=== PATIENT | female | born 1960 | race Caucasian/White ===

== ENCOUNTER → 2024-06-22 | Outpatient (CLI) | payer MEDICARE, SELFPAY ==
--- NOTE | 2024-06-22 14:20 | XR_ITS ---
Examination: Lumbar spine, 5 views Technique: Lumbar spine AP, lateral, coned lateral lower lumbar spine, bilateral obliques 5 views Exam date and time: June 22, 2024 1425 hours INDICATIONS: Back pain after reaching 2 days ago FINDINGS: Moderate osteopenia No lumbar fracture Diffuse lumbar disc narrowing, moderate to advanced, most prominent L4-L5, L5-S1 No spondylolisthesis IMPRESSION: No lumbar fracture Diffuse lumbar degenerative disc disease, advanced L4-L5, L5-S1
--- NOTE | 2024-06-22 14:20 | XR_ITS ---
Examination: Thoracic spine 3 views Technique one AP lateral coned lateral upper dorsal spine 3 views Exam date and time: June 22, 2024 at 1538 hours INDICATIONS: Injury to the back 2 days ago back pain FINDINGS: Adequate alignment thoracic vertebral bodies Prominent osteopenia Chronic osteoporotic mild compressions mid dorsal vertebral bodies No acute thoracic fracture Mild to moderate diffuse thoracic degenerative disc disease IMPRESSION: Mild to moderate diffuse thoracic degenerative disc disease
== END | disposition home or self-care (01) ==
LOC: CDIM 14:10
PROVIDERS: PCP Internal Medicine; Referring Provider Internal Medicine; Visit Provider Internal Medicine
DX: M51.369 Other intervertebral disc degeneration, lumbar region without mention of lumbar back pain or lower extremity pain (principal); M51.379 Other intervertebral disc degeneration, lumbosacral region without mention of lumbar back pain or lower extremity pain; M51.34 Other intervertebral disc degeneration, thoracic region
CPT/HCPCS: 72072; 72110

== ENCOUNTER → 2024-07-27 | Outpatient (CLI) | payer MEDICARE, SELFPAY ==
--- NOTE | 2024-07-27 13:00 | XR_ITS ---
Examination: Screening digital mammography, bilateral Computer aided detection 3-D breast Tomosynthesis, bilateral Date and time of exam: July 27, 2024 1249 hours Compared to mammograms dating to December 08, 2002 Indication: Screening Technique: Nonmagnified MLO, CC views of the breasts to been obtained, reconstructed from 3-D Tomosynthesis images. R2 computer aided detection program utilized for evaluation of suspicious masses and/or abnormal calcifications. 3-D Tomosynthesis images obtained. Findings: The breasts are heterogeneously dense, which may obscure small masses Stable focal asymmetry upper left breast MLO view Benign calcifications IMPRESSION: BI-RADS Category 3: Probably benign findings Recommend 1 additional 6 month left mammogram follow-up to document stability of focal asymmetry upper left breast noted on the December 08, 2022 exam and persistent on the current study
== END | disposition home or self-care (01) ==
PROVIDERS: PCP Internal Medicine; Referring Provider Internal Medicine; Visit Provider Internal Medicine
DX: Z12.31 Encounter for screening mammogram for malignant neoplasm of breast (principal); R92.333 Mammographic heterogeneous density, bilateral breasts; N64.89 Other specified disorders of breast
CPT/HCPCS: 77063; 77067

== ENCOUNTER → 2025-01-25 | Outpatient (CLI) | payer MEDICARE, SELFPAY ==
--- NOTE | 2025-01-25 13:00 | XR_ITS ---
Examination: Diagnostic digital mammography, unilateral, left Computer aided detection 3-D breast Tomosynthesis, unilateral Date and time of exam: January 25, 2025 1248 hours INDICATIONS: Mammogram July 2024 focal asymmetry upper left breast MLO view Technique: Nonmagnified MLO, CC views of the left breast have been obtained, reconstructed from 3-D Tomosynthesis images. R2 computer aided detection program utilized for evaluation of suspicious masses and/or abnormal calcifications. 3-D Tomosynthesis images obtained. Findings: The breast is heterogeneously dense, which may obscure small masses Stable focal asymmetry upper outer left breast Impression: BI-RADS category 0: Incomplete: Need additional imaging evaluation Recommend follow-up left breast sonography to further assess focal asymmetry upper outer left breast
== END | disposition home or self-care (01) ==
PROVIDERS: PCP Internal Medicine; Referring Provider Internal Medicine; Visit Provider Internal Medicine
DX: N64.89 Other specified disorders of breast (principal); R92.8 Other abnormal and inconclusive findings on diagnostic imaging of breast
CPT/HCPCS: 77061; 77065; G0279

== ENCOUNTER → 2025-02-21 | Outpatient (CLI) | payer MEDICARE, SELFPAY ==
--- NOTE | 2025-02-21 13:30 | XR_ITS ---
Examination: Breast ultrasound, unilateral, left completely Date and time of exam: February 21, 2025 1347 hours INDICATIONS: Mammogram July 27, 2024 focal asymmetry upper left breast MLO view Technique: Real-time tripathi scale ultrasonographic imaging performed left breast including all 4 quadrants as well as nipple retroareolar and axillary region. Findings: 2:00 nodule circumscribed 5 x 6 mm IMPRESSION: BI-RADS Category 3: Probably benign findings One additional 6 month left breast sonogram follow-up needed to document stability 2:00 nodule
== END | disposition home or self-care (01) ==
PROVIDERS: Referring Provider Internal Medicine; Visit Provider Internal Medicine
DX: N63.21 Unspecified lump in the left breast, upper outer quadrant (principal)
CPT/HCPCS: 76641

== ENCOUNTER → 2025-06-23 | Outpatient (CLI) | payer MEDICARE, SELFPAY ==
--- NOTE | 2025-06-23 10:56 | XR_ITS ---
Examination: Ribs, right, with PA chest, 4 views Technique: Chest PA, RIBS AP, RPO, LPO, Exam date and time: June 23, 2025, 1106 hours INDICATIONS: Right rib pain after falling 2 days ago. FINDINGS: Normal heart size No pneumothorax Moderate osteopenia No acute rib fractures Impression: No pneumothorax pulmonary contusion or hemothorax No acute rib fractures
== END | disposition home or self-care (01) ==
LOC: SDIM 10:19 → CDIM 06-26 14:32
PROVIDERS: PCP Family Medicine; Referring Provider Student in an Organized Health Care Education/Training Program; Visit Provider Student in an Organized Health Care Education/Training Program
DX: R07.9 Chest pain, unspecified (principal)
CPT/HCPCS: 71101